=== PATIENT | male | born 1965 | race Caucasian/White ===

== ENCOUNTER 2022-01-24 16:02 | Outpatient (CLI) | payer BC, SELFPAY ==
[2022-01-24 17:25] LABS: Chloride* 98 mmol/L (96-114); Potassium* 3.9 mmol/L (3.6-5.1); Sodium* 138 mmol/L (135-149)
[2022-01-24 17:28] LABS: Blood Urea Nitrogen* 23 mg/dL (7-30); Carbon Dioxide* 27 mmol/L (20-32); Cholesterol* 198 mg/dL (90-199); Creatinine* 1.1 mg/dL (0.5-1.5); Estimated Glomerular Filt Rate 79 ml/min
[2022-01-24 17:29] LABS: Glucose* 99 mg/dL (60-115); HDL Cholesterol* 46 mg/dL (>=40); LDL Cholesterol Calculated 113 mg/dL (<100); Triglycerides* 196 mg/dL (40-149)
[2022-01-24 18:00] LABS: PSA Screen* 0.96 ng/mL (0.10-4.00)
== END 2022-01-24 16:03 | disposition home or self-care (01) ==
LOC: NFLDREF 16:04
PROVIDERS: PCP Family Medicine; Visit Provider Family Medicine
DX: E11.9 Type 2 diabetes mellitus without complications (principal); I10 Essential (primary) hypertension; Z13.6 Encounter for screening for cardiovascular disorders; Z12.5 Encounter for screening for malignant neoplasm of prostate
CPT/HCPCS: 80048; 80061; 84153

== ENCOUNTER 2023-01-31 16:05 | Outpatient (CLI) | payer BC, SELFPAY | END 2023-01-31 16:06 | disposition home or self-care (01) | LOC: NFLDREF 16:06 | PROVIDERS: PCP Family Medicine; Visit Provider Family Medicine | DX: E11.9 Type 2 diabetes mellitus without complications (principal); I10 Essential (primary) hypertension; Z12.5 Encounter for screening for malignant neoplasm of prostate; Z13.6 Encounter for screening for cardiovascular disorders | CPT/HCPCS: 80048; 80061; 84153 ==

== ENCOUNTER 2023-03-31 08:46 | Outpatient (CLI) | payer OTHER, SELFPAY ==
--- NOTE | 2023-03-31 09:57 | W.ANESCHARGE ---
Anesthesia Charges Start Date/Time Anesthesia Start Date: 03/31/23 Anesthesia Start Time: 09:50 Stop Date/Time Anesthesia Stop Date: 03/31/23 Anesthesia Stop Time: 10:16
--- NOTE | 2023-03-31 10:24 | W.ANESCHARGE ---
Anesthesia Charges Start Date/Time Anesthesia Start Date: 03/31/23 Anesthesia Start Time: 09:50 Stop Date/Time Anesthesia Stop Date: 03/31/23 Anesthesia Stop Time: 10:16
== END 2023-03-31 08:47 | disposition home or self-care (01) ==
LOC: OP CLINIC 08:49
PROVIDERS: PCP Family Medicine; Visit Provider Internal Medicine
DX: Z12.11 Encounter for screening for malignant neoplasm of colon (principal); K57.30 Diverticulosis of large intestine without perforation or abscess without bleeding; K63.5 Polyp of colon; D12.5 Benign neoplasm of sigmoid colon
CPT/HCPCS: 00811; 00812; 45380; 45385; 88305; J2704

== ENCOUNTER 2024-02-13 12:49 | Outpatient (CLI) | payer OTHER, SELFPAY | END 2024-02-13 12:50 | disposition home or self-care (01) | PROVIDERS: PCP Family Medicine; Visit Provider Family Medicine | DX: E11.9 Type 2 diabetes mellitus without complications (principal); I10 Essential (primary) hypertension; Z12.5 Encounter for screening for malignant neoplasm of prostate | CPT/HCPCS: 80048; 80061; G0103 ==

== ENCOUNTER 2024-08-20 09:20 | Outpatient (CLI) | payer OTHER, SELFPAY | END 2024-08-20 09:21 | disposition home or self-care (01) | LOC: FBOREF 09:20 | PROVIDERS: PCP Family Medicine; Visit Provider Family Medicine | DX: E78.2 Mixed hyperlipidemia (principal) | CPT/HCPCS: 80061 ==